=== PATIENT | male | born 1955 | race Caucasian/White ===

== ENCOUNTER → 2017-03-27 13:58 | Outpatient (CLI) | payer OTHER ==
[2017-03-28 09:13] LABS: PSA - % FREE 13.8 % (()); PSA - FREE 0.84 ng/mL; PSA - TOTAL 6.1 ng/mL (0.0-4.0)
== END | disposition home or self-care (01) ==
LOC: D.LAB 13:58
PROVIDERS: Urology
DX: R97.20 Elevated prostate specific antigen [PSA] (principal)